=== PATIENT | male | born 1955 | race Caucasian/White ===

== ENCOUNTER 2021-07-31 16:03 | Outpatient (CLI) | payer BC | END 2021-07-31 16:04 | disposition home or self-care (01) | LOC: ULT 16:03 | PROVIDERS: ATTEND Orthopaedic Surgery | DX: R22.32 Localized swelling, mass and lump, left upper limb (principal) | CPT/HCPCS: 93923 ==

== ENCOUNTER 2021-09-10 14:27 | Outpatient (CLI) | payer BC ==
[~2021-09-10 14:27] MED LIST: Iopamidol-370 76% 500 ML 1 ML ONE
== END 2021-09-10 14:28 | disposition home or self-care (01) ==
LOC: CT 14:27
PROVIDERS: ATTEND Thoracic Surgery (Cardiothoracic Vascular Surgery)
DX: I72.1 Aneurysm of artery of upper extremity (principal)